=== PATIENT | female | born 1990 ===

== ENCOUNTER 2021-01-12 15:12 | Emergency (ER) | payer SELFPAY ==
[~2021-01-12] VITALS: Ht 167.6 cm; Wt 77.0 kg
== END 2021-01-12 16:38 | disposition home or self-care (01) ==
LOC: ER 15:12
DX: S81.811A Laceration without foreign body, right lower leg, initial encounter (principal); W22.01XA Walked into wall, initial encounter
CPT/HCPCS: 12002; 99282